=== PATIENT | female | born 1940 | race Caucasian/White ===

== ENCOUNTER 2023-11-30 06:39 | Inpatient (IN) | payer MEDICARE, SELFPAY ==
--- NOTE | 2023-10-28 13:34 | CM ---
Patient is scheduled for an elective R TKR on 11/30/23. Spoke with patient's daughter prior to surgery via telephone. Introduced role of Orthopedic Navigator. She reports that patient lives in a one floor (one step to enter) in law suite at daughter's
home. Daughter assists with showers but patient otherwise functions independently. She uses a rolling walker and also has a shower seat, grab bars in the shower and raised toilet seat with rails. She has an aide through [facility] [employer] two
days a week (four hours each time). The aide assists with meals and getting patient 'up and moving'. Daughter states that patient is very sedentary. She was receiving VN services through [facility] at the time of our conversation. PCP is "Harvey"Fernando.
Discussed orthopedic program and post surgical plans. Reviewed anticipated length of stay and that goal is for patient to return home at discharge. Also reviewed outpatient PT. Daughter is in agreement with tentative plan but states that patient
will need VN services. Daughter will be able to provide support when she is home.
Patient will complete online education.
Plan: Orthopedic Navigator will remain available to assist with the care of patient and will reassess discharge needs after surgery.
[2023-11-06 13:23] VITALS: BMI 24.2
[2023-11-06 14:30] LABS: Hematocrit 40.6 % (37.0-47.0); Hemoglobin 12.8 g/dL (12.0-16.0); Mean Corp Hgb Conc. 31.5 g/dL (33.0-37.0); Mean Corpuscular Hgb 29.1 pg (27.0-31.0); Mean Corpuscular Volume 92.3 fL (81.0-99.0); Mean Platelet Volume 9.9 fL (7.4-10.4); Platelet Count 245 10^3/uL (130-400); Red Cell Dist. Width 13.8 % (11.5-14.5); White Blood Cell Count 6.9 10^3/uL (4.8-10.8)
[2023-11-06 14:48] LABS: ALT (SGPT) 13 U/L (0-35); AST (SGOT) 23 U/L (14-36); Albumin 4.1 g/dl (3.5-5.0); Alkaline Phosphatase 59 U/L (38-126); Blood Urea Nitrogen 25 mg/dl (7-17); Calcium 9.8 mg/dl (8.4-10.2); Carbon Dioxide 30 mmol/L (22-30); Chloride 101 mmol/L (98-107); Estimated Creatinine Clearance 58 ml/min; Glucose 93 mg/dl (70-99); Potassium 4.3 mmol/L (3.5-5.1); Sodium 139 mmol/L (135-145); Total Bilirubin 0.7 mg/dl (0.2-1.3); Total Protein 6.5 g/dl (6.3-8.2); eGFR > 60.00
[2023-11-06 15:45] VITALS: BMI 24.2
[2023-11-07 08:44] LABS: Glycohemoglobin (HgbA1c) 5.5 % (4.0-5.6)
[2023-11-30] VITALS (9 sets, daily range): BP systolic 129–183; BP diastolic 61–80; BMI 24.2
[2023-11-30] MEDS: NORMOSOL-R 1000 IV ×2 (12:10→16:56)
[2023-11-30] MEDS: TYLENOL 650 MG PO (12:20)
[2023-11-30] MEDS: CELEBREX 200 MG PO (12:20)
--- NOTE | 2023-11-30 13:23 | SUR.OPER ---
patient has a pacemaker, s/p 3 cardiac ablations, 2 cardio versions
--- NOTE | 2023-11-30 14:59 | W.PN.UPDATE ---
Update Note
Progress Note Update
R knee OA s/p R TKA w/ Dr Leach 11/30/23
- s/p L CARLYN, 09/2018, at an outside facility
DVT prophylaxis - Xarelto at modified dosing, b/l venous foot pumps
- Will resume Xarelto 20 mg qPM on POD 14 if remaining hemodynamically stable
HTN - diet controlled - monitor BP
Permanent atrial fibrillation/atrial flutter, status post ablation x3 and cardioversion x2
Atrial tachycardia, status post ablation 03/2015
Complete AV heart block, status post pacemaker insertion 2015
- Monitor on tele
- Resume Xarelto as stated above
Right renal artery stenosis, status post stenting 2003 - no NSAIDs
GERD - add Pepcid HS
Balance difficulties and ambulatory dysfunction with history of falls - on fall precautions
Lumbar DDD/stenosis with radiculopathy - consider Gabapentin or Lyrica
Hypercholesterolemia
Mild coronary and aortic calcifications on chest CT 2014
Venous varicosities with insufficiency
Mild to moderate mitral regurgitation
Mild tricuspid regurgitation
Pancreatitis secondary to previous Lipitor 2010
Benign essential tremor of right hand
Childhood goiter
Overactive bladder
COVID 19, 02/2023, without residual deficits
Rhabdomyolysis 02/2023
Osteopenia
Remote history of tobacco abuse
--- NOTE | 2023-11-30 16:40 | PTCARENOTE ---
received report from pacu, pt admitted to room 2113. AAOx3. right knee aquacel CDI. right dp pulse palpable. sensation intact. Lung sounds clear on room air. active bowel sounds. denies nausea. see worklist for full nursing assessment and
interventions.
[2023-11-30] MEDS: LIDOCAINE 4% PATCH 2 PATCH TOPICAL (16:57)
[2023-11-30] MEDS: VITAMIN B-12 1000 MCG PO (16:57)
[2023-11-30] MEDS: XARELTO 10 MG PO (16:57)
[2023-11-30] MEDS: NORCO 5/325 1 TABLET PO ×2 (17:25→22:01)
[2023-11-30] MEDS: COLACE 100 MG PO (20:34)
[2023-11-30] MEDS: PEPCID 20 MG PO (20:34)
[2023-11-30] MEDS: SENOKOT 17.1999999999999993 MG PO (20:34)
[2023-11-30] MEDS: DECADRON 4 MG PO (20:34)
[2023-11-30] MEDS: BACTROBAN 2% OINTMENT 1 APPLIC NASAL (21:57)
[2023-12-01 03:20] VITALS: BP 170/69
[2023-12-01] MEDS: NORCO 7.5/325 1 TABLET PO (04:46)
[2023-12-01 05:06] VITALS: BP 150/66
[2023-12-01 05:56] VITALS: BMI 26.1
[2023-12-01 07:31] VITALS: BP 143/63
[2023-12-01] MEDS: LIDOCAINE 4% PATCH 2 PATCH TOPICAL (08:31)
[2023-12-01] MEDS: DECADRON 4 MG PO (08:35)
[2023-12-01] MEDS: COLACE 100 MG PO (08:35)
[2023-12-01] MEDS: TYLENOL 650 MG PO (08:35)
[2023-12-01] MEDS: BACTROBAN 2% OINTMENT 1 APPLIC NASAL (08:36)
[2023-12-01] MEDS: SENOKOT 17.1999999999999993 MG PO (08:36)
[2023-12-01] MEDS: VITAMIN B-12 1000 MCG PO (08:36)
--- NOTE | 2023-12-01 08:48 | CM ---
Addendum entered by Lillian Kauffman 12/01/23 10:18:
Call placed to daughter. Update provided. She states that she will be home with patient for two weeks. She has also increased the hours the caregiver comes to three days a week, five hours each time. She will be present for discharge instructions;
RN aware.
Addendum entered by Lillian Kauffman 12/01/23 10:10:
Spoke with Aura at [facility]. She requested a script for home PT and OT; script faxed to [facility].
Original Note:
Reviewed chart and held rounds with PT, OT and nursing. Patient admitted as planned for elective R TKR. Met with patient at bedside. Confirmed information previously obtained for assessment. Also discussed discharge plans. The plan is for patient to
return home at discharge. She will have support from her daughter and aide (who comes twice a week) when she goes home. Reviewed VN services including start of care (tentatively 12/01), services to be ordered (PT, OT) and frequency/duration of
services. Options list provided and PAC data reviewed. Patient selects [facility].
Patient has a rolling walker, cane and raised toilet seat with rails at home.
VN referral was completed and sent to [facility] through [employer] with request for start of care on 12/01. Spoke with Aura at [facility] who confirms that they can accept referral. yard demurrage clerk to fax discharge instructions to [facility] when complete.
Patient will use [email or web address] pharmacy for discharge prescriptions.
[2023-12-01 09:00] VITALS: BP 133/58; PULSE 88
--- NOTE | 2023-12-01 10:05 | W.PN.ORTHO ---
Today's Communication / Plan
-
D/c today since clinically stable, did well w/ both PT and OT.
Assessment
.
Distal Motor Intact: Yes
Dressing:
Clean, dry and intact.
Assessment:
R knee OA s/p R TKA w/ Dr Leach 11/30/23
- s/p L CARLYN, 09/2018, at an outside facility
DVT prophylaxis - Xarelto at modified dosing, b/l venous foot pumps
- Will resume Xarelto 20 mg qPM on POD 14 since hemodynamically stable
HTN - diet controlled - BPs stable by POD 1
Permanent atrial fibrillation/atrial flutter, status post ablation x3 and cardioversion x2
Atrial tachycardia, status post ablation 03/2015
Complete AV heart block, status post pacemaker insertion 2015
- Rhythm stable on tele
- Resume Xarelto as stated above
Right renal artery stenosis, status post stenting 2003 - no NSAIDs
GERD - added Pepcid HS
Balance difficulties and ambulatory dysfunction with history of falls - on fall precautions
Lumbar DDD/stenosis with radiculopathy - consider Gabapentin or Lyrica
Hypercholesterolemia
Mild coronary and aortic calcifications on chest CT 2014
Venous varicosities with insufficiency
Mild to moderate mitral regurgitation
Mild tricuspid regurgitation
Pancreatitis secondary to previous Lipitor 2010
Benign essential tremor of right hand
Childhood goiter
Overactive bladder
COVID 19, 02/2023, without residual deficits
Rhabdomyolysis 02/2023
Osteopenia
Remote history of tobacco abuse
Plan
.
Surgery / Date: R TKA w/ Dr Leach 11/30/23
DVT Prophylaxis: Other (Xarelto at modified dosing )
Activity:
Out of bed.
PT/OT
Discharge Plan: Other (Home w/ home PT and OT )
Subjective
.
.:
Patient resting comfortably in her chair this AM.
R knee pain well controlled w/ current pain meds.
Denies any new significant complaints.
Eager for potential d/c today.
Vital Signs and Labs
.
Vital Signs and Labs:
Lab Results
11/06/23 13:30
11/06/23 13:30
Temp Pulse Resp BP Pulse Ox
98.5 F 81 16 143/63 92
12/01/23 07:31 12/01/23 07:31 12/01/23 07:31 12/01/23 07:31 12/01/23 07:31
Non-invasive Hgb result: 12.8
Physical Exam
-
HEENT: No pallor, cyanosis, or jaundice. Throat clear.
NECK: Supple. No JVD.
RESPIRATORY: Lungs clear to auscultation.
CVS: S1, S2 normal. RRR.�+ PPM.
ABDOMEN: Soft, non-tender. No distension.
EXTREMITIES: Chronic R ankle swelling. Mild post-surgical swelling of R knee. Strength equal, no calf pain with palpation/dorsiflexion. Calves soft.
PARTY COORDINATOR: AOx3. No focal deficits. truck hopper grossly intact
--- NOTE | 2023-12-01 10:14 | W.DS.TRANS ---
DC Summary - Glass Blower
-
Discharge Instructions:
Sleep Apnea Risk Low
Discharge Diagnosis/Procedures R knee OA s/p R TKA w/ Dr Leach 11/30/23
Diet Regular
Activity As tolerated,With Walker
Driving Restrictions Not until seen by your Dr
Bathing Restrictions OK to Shower
Other Services PT,OT
Wound Care Dressing to be removed 1 week post-surgery.
[place] to be removed in 2 weeks at follow-up
appointment with surgeon's office.
Instructions:
Stand-Alone Forms: Total Hip/Knee Replacement D/C
Changes to Home Medications: Yes
Discharge Medications:
DC Medications w/original date entered in [employer]
cyanocobalamin (vitamin B-12) 1,000 mcg tablet 1,000 mcg PO DAILY Supplement 03/11/23
rivaroxaban 20 mg tablet (Xarelto) 20 mg PO DAILY Blood Clot Prevention/Tx 03/11/23
calcium 600 mg capsule 600 mg PO QPM Supplement 11/03/23
mupirocin 2 % topical ointment 1 applic intranasal BID #1 tube 11/06/23
acetaminophen 325 mg tablet 650 mg PO Q4H PRN mild pain #60 tabs 12/01/23
dexamethasone 4 mg tablet 4 mg PO BID #5 tabs 12/01/23
docusate sodium 100 mg capsule 100 mg PO BID #30 caps 12/01/23
famotidine 20 mg tablet 20 mg PO HS #30 tabs 12/01/23
hydrocodone 5 mg-acetaminophen 325 mg tablet 1 - 2 tab PO Q6H PRN moderate-severe pain #30 tabs 12/01/23
lidocaine 4 % topical patch 2 patch topical DAILY #30 ea 12/01/23
ondansetron HCl 4 mg tablet 4 mg PO Q6H PRN nausea and vomiting #30 tabs 12/01/23
rivaroxaban 10 mg tablet (Xarelto) 10 mg PO QPM #13 tabs 12/01/23
sennosides 8.6 mg tablet (Senna Lax) 17.2 mg PO BID #30 tabs 12/01/23
Home Medication Changes
acetaminophen 325 mg tablet 650 mg PO Q4H PRN mild pain #60 tabs 12/01/23
dexamethasone 4 mg tablet 4 mg PO BID #5 tabs 12/01/23
docusate sodium 100 mg capsule 100 mg PO BID #30 caps 12/01/23
famotidine 20 mg tablet 20 mg PO HS #30 tabs 12/01/23
hydrocodone 5 mg-acetaminophen 325 mg tablet 1 - 2 tab PO Q6H PRN moderate-severe pain #30 tabs 12/01/23
lidocaine 4 % topical patch 2 patch topical DAILY #30 ea 12/01/23
ondansetron HCl 4 mg tablet 4 mg PO Q6H PRN nausea and vomiting #30 tabs 12/01/23
rivaroxaban 10 mg tablet (Xarelto) 10 mg PO QPM #13 tabs 12/01/23
sennosides 8.6 mg tablet (Senna Lax) 17.2 mg PO BID #30 tabs 12/01/23
Pending Results: No
[2023-12-01 10:42] VITALS: BP 136/67
== END 2023-12-01 12:14 | disposition home health service (06) | DRG 470 ==
LOC: 2 SOUTH 06:39
PROVIDERS: ADMITTING PHYSICIAN Specialist; FAMILY PHYSICIAN Internal Medicine Geriatric Medicine
PROC: 0SRC0J9 Replacement of Right Knee Joint with Synthetic Substitute, Cemented, Open Approach (ICD-10-PCS; 2023-11-30)
DX: M17.11 Unilateral primary osteoarthritis, right knee (principal); I48.21 Permanent atrial fibrillation; I10 Essential (primary) hypertension; E78.00 Pure hypercholesterolemia, unspecified; I08.1 Rheumatic disorders of both mitral and tricuspid valves; Z79.01 Long term (current) use of anticoagulants; Z95.0 Presence of cardiac pacemaker; Z87.891 Personal history of nicotine dependence; Z91.81 History of falling
CPT/HCPCS: 36415; 73560; 80053; 83036; 85027; 87070; 97110; 97116; 97162; 97166; 97530; 97535; C1713; C1776

== ENCOUNTER 2024-02-26 15:01 | Outpatient (RCR) | payer MEDICARE, SELFPAY | END 2024-02-26 23:59 | disposition home or self-care (01) | LOC: RPT 15:01 | PROVIDERS: ATTENDING PHYSICIAN Specialist; FAMILY PHYSICIAN Internal Medicine Geriatric Medicine | DX: Z47.1 Aftercare following joint replacement surgery (principal); Z96.651 Presence of right artificial knee joint; Z73.6 Limitation of activities due to disability; R26.89 Other abnormalities of gait and mobility | CPT/HCPCS: 97010; 97110; 97140; 97162 ==

== ENCOUNTER 2024-03-22 13:12 | Outpatient (RCR) | payer MEDICARE, SELFPAY | END 2024-03-23 07:34 | disposition home or self-care (01) | LOC: RPT 13:12 | PROVIDERS: ATTENDING PHYSICIAN Specialist; FAMILY PHYSICIAN Internal Medicine Geriatric Medicine | DX: R26.89 Other abnormalities of gait and mobility (principal); Z73.6 Limitation of activities due to disability; Z96.651 Presence of right artificial knee joint | CPT/HCPCS: 97110; 97140 ==

== ENCOUNTER 2024-04-22 14:14 | Inpatient (IN) | payer MEDICARE, SELFPAY ==
[2024-04-22] VITALS (8 sets, daily range): BP systolic 122–173; BP diastolic 46–72; BMI 27.1; BMI 23.9
--- NOTE | 2024-04-22 09:28 | ED.GENMED ---
History of Present Illness
<Amandeep Stewart PA-C - Last Filed: 04/22/24 13:38>
General
Chief Complaint: Fall
Source: patient and family
Time Seen by Provider: 04/22/24 09:16
History of Present Illness
History of Present Illness:
83-year-old female with past medical history of atrial fibrillation, hypertension, hyperlipidemia presenting to the emergency department for evaluation after she fell at approximately 3 AM last night while attempting to get up out of bed and go to
the bath, was attempting to grab onto her walker but was unable to get a hold of this and fell back into the wooden frame of her bed. Patient is currently staying with her oldest daughter for the week as her other daughter who she normally stays
with is currently away on vacation. Patient takes Xarelto due to her history of atrial fibrillation but does not believe she struck her head last night. Patient states her main concern is mid to lower back pain and family notes a large area of
ecchymosis since the fall. Family also notes a very small skin tear to the right forearm but no other injuries sustained. Patient denies any chest pain, shortness of breath, abdominal pain, nausea, vomiting.
Past History
<Amandeep Stewart PA-C - Last Filed: 04/22/24 13:38>
Past History
ED Past Medical History: Arrthythmia (Atrial tachycardia, atrial fibrillation), GERD, HTN and Hypercholesterolemia
ED Past Surgical History: Cardiac (Cardiac ablations/cardioversions), Gynecological (D&C) and Other (Renal artery stenting)
Social History
Tobacco: Non-smoker
Alcohol: None
Drug: None
Personal:
Living: with family
Employment: Retired
Family History
Family History: Negative Early CAD
Review of Systems
<Amandeep Stewart PA-C - Last Filed: 04/22/24 13:38>
Review of Systems
All Other Systems: ROS reviewed and negative except as documented in HPI and ROS
Phy Exam
<Amandeep Stewart PA-C - Last Filed: 04/22/24 13:38>
Physical Exam
Physical Exam:
GENERAL: Alert , in no apparent distress
Head: Normocephalic atraumatic
EYE: Clear conjunctiva
NECK: Supple, no midline tenderness
ENT: o/p clr, mmm.
CARDIAC: Regular rate and rhythm .
LUNGS: Clear breath sounds bilaterally, no acute respiratory distress, no wheezes/rales/rhonchi, no chest wall tenderness
ABDOMEN: Soft, without focal tenderness, no r/g, no cvat
Back: Large area of ecchymosis from the mid thoracic region down to the top of the lumbar region, midline, small abrasion centrally, diffusely tender to palpation within the ecchymosis
NEUROLOGICAL: Alert and oriented
SKIN: Warm and dry, skin intact.
MUSCULOSKELETAL: Nonpitting bilateral lower extremity edema to the mid lower legs, well perfused.
PSYCH: Normal and appropriate interaction.
Scores
<Amandeep Stewart PA-C - Last Filed: 04/22/24 13:38>
Heart Failure Risk
Heart Failure Risk Score: Not Applicable
Heart Score for Chest Pain Patients
STEMI patient?: Not applicable
Withdrawal Assessment of Alcohol
Withdrawal Assessment Completed?: Not applicable
Course
<Amandeep Stewart PA-C - Last Filed: 04/22/24 13:38>
Orders/Labs/Results
Orders:
Orders
04/22/24 09:23
CT Chest/abd/pel W Iv Cont Urgent
Reason For Exam: fall, on xarelto, large ecchymosis mid back
CT Head W/o Iv Contrast Urgent
Comment:
Reason For Exam: fall, on xarelto
04/22/24 09:33
Acetaminophen [Tylenol] 650 mg PO NOW STA
04/22/24 09:42
Basic Metabolic Panel Urgent
Complete Blood Count/With Diff Urgent
04/22/24 13:01
Type+Screen Urgent
04/22/24 13:06
Prothrombin Complex(Pcc),Human [Kcentra] 1,618 unit Empty Viaflex Container 100 ml [Viaflex Empty Container] 60 ml IV NOW
Abnormal Lab Results
04/22/24
09:42
RBC 3.82 L 10^6/uL
(4.20-5.40)
Hgb 10.9 L g/dL
(12.0-16.0)
Hct 33.6 L %
(37.0-47.0)
MCHC 32.4 L g/dL
(33.0-37.0)
RDW 14.8 H %
(11.5-14.5)
Absolute Neuts (auto) 6.8 H 10^3/uL
(1.4-6.5)
Absolute Lymphs (auto) 0.9 L 10^3/uL
(1.2-3.4)
Absolute Monos (auto) 1.0 H 10^3/uL
(0.1-0.6)
Neutrophils % 77.8 H %
(42.2-75.2)
Lymphocytes % 9.9 L %
(20.5-51.1)
Monocytes % 11.1 H %
(1.7-9.3)
BUN 26 H mg/dl
(7-17)
Glucose 118 H mg/dl
(70-99)
04/22/24 09:42
04/22/24 09:42
Vital Signs
Initial and Last Documented VS:
Initial Vital Signs
Temp Pulse Resp BP Pulse Ox
99.0 F 81 16 160/72 95
04/22/24 09:04 04/22/24 09:04 04/22/24 09:04 04/22/24 09:04 04/22/24 09:04
Last Documented Vital Signs
Temp Pulse Resp BP Pulse Ox
99.0 F 76 16 154/58 96
04/22/24 09:04 04/22/24 11:10 04/22/24 11:10 04/22/24 11:10 04/22/24 11:10
<Hyun Boston, DO - Last Filed: 04/22/24 13:31>
Orders/Labs/Results
Orders:
Orders
04/22/24 09:23
CT Chest/abd/pel W Iv Cont Urgent
Reason For Exam: fall, on xarelto, large ecchymosis mid back
CT Head W/o Iv Contrast Urgent
Comment:
Reason For Exam: fall, on xarelto
04/22/24 09:33
Acetaminophen [Tylenol] 650 mg PO NOW STA
04/22/24 09:42
Basic Metabolic Panel Urgent
Complete Blood Count/With Diff Urgent
04/22/24 13:01
Type+Screen Urgent
04/22/24 13:06
Prothrombin Complex(Pcc),Human [Kcentra] 1,618 unit Empty Viaflex Container 100 ml [Viaflex Empty Container] 60 ml IV NOW
Abnormal Lab Results
04/22/24
09:42
RBC 3.82 L 10^6/uL
(4.20-5.40)
Hgb 10.9 L g/dL
(12.0-16.0)
Hct 33.6 L %
(37.0-47.0)
MCHC 32.4 L g/dL
(33.0-37.0)
RDW 14.8 H %
(11.5-14.5)
Absolute Neuts (auto) 6.8 H 10^3/uL
(1.4-6.5)
Absolute Lymphs (auto) 0.9 L 10^3/uL
(1.2-3.4)
Absolute Monos (auto) 1.0 H 10^3/uL
(0.1-0.6)
Neutrophils % 77.8 H %
(42.2-75.2)
Lymphocytes % 9.9 L %
(20.5-51.1)
Monocytes % 11.1 H %
(1.7-9.3)
BUN 26 H mg/dl
(7-17)
Glucose 118 H mg/dl
(70-99)
04/22/24 09:42
04/22/24 09:42
Vital Signs
Initial and Last Documented VS:
Initial Vital Signs
Temp Pulse Resp BP Pulse Ox
99.0 F 81 16 160/72 95
04/22/24 09:04 04/22/24 09:04 04/22/24 09:04 04/22/24 09:04 04/22/24 09:04
Last Documented Vital Signs
Temp Pulse Resp BP Pulse Ox
99.0 F 76 16 154/58 96
04/22/24 09:04 04/22/24 11:10 04/22/24 11:10 04/22/24 11:10 04/22/24 11:10
<Amandeep Stewart PA-C - Last Filed: 04/22/24 13:38>
MDM/Problems Addressed
Differential Diagnosis Includes:
Thoracic or lumbar fracture, contusion, retroperitoneal bleeding, intracranial bleeding, mechanical trip and fall, no concern for sink
MDM/Problems Addressed:
83-year-old female presenting to the emergency department for evaluation after an accidental fall last night while attempting to get out of bed to go to the bathroom. Patient with significant back pain since the fall, physical exam revealing large
area of ecchymosis within the thoracic and lumbar region. She is hemodynamically stable and in no acute distress. Did not take anything for pain prior to arrival. Patient requesting Tylenol. CT of the head ordered given patient is anticoagulated
as well as the chest abdomen pelvis to evaluate for any further injury.
Chronic conditions affecting care: Arrhythmia
<Amandeep Stewart PA-C - Last Filed: 04/22/24 13:38>
*Radiology
Radiology exam reviewed: radiology read reviewed
*Pulse Oximetry
Patient hypoxic: no
*Pottery Striper Interpretation
Rate: normal
Rhythm: sinus
*Critical Care Note
Total Time (30-74mins, 75-104mins- exclusive of procedures): 35
comment:
Critical care statement: A total of 35 minutes of critical care time was provided for this patient. This includes management of unstable vital signs, evaluation of the patient at bedside, reviewing the patient's pertinent medical records, discussion
with consultants, review of old EKGs and review of pertinent medical records. This time with separate from time utilized to perform the aforementioned documented procedures
Data Reviewed
Review of Other/Old Records Reveals: Labs
<Amandeep Stewart PA-C - Last Filed: 04/22/24 13:38>
Patient Management
Discussion with other providers: Hospitalist, Labor Conciliator and Radiologist
Escalation/DeEscalation of care consider admission/obs:
Informed by radiologist that patient has an approximate 9-1/2 x 6 and half centimeter soft tissue hematoma within the soft tissues of the posterior left thoracolumbar region and there does appear to be active extravasation. Patient's hemoglobin is
10.9 and baseline appears to be around 12-13. I spoke to our interventional radiology department who states at this time patient can be managed with Kcentra and direct pressure and this should be sufficient to control the bleeding. I notified
hospitalist team who accepts for continued evaluation and treatment.
ED Attending Note
<Amandeep Stewart PA-C - Last Filed: 04/22/24 13:38>
-
Portions of this chart may have been created with voice recognition software.� Occasional wrong word or��sound alike� substitutions may have occurred due to the inherent limitations of voice recognition software.
<Hyun Boston DO - Last Filed: 04/22/24 13:31>
ED Attending Note
Patient seen and examined by attending physician: Yes
I performed the substantive portion of visit, reviewed & personally made and approve the management plan that is documented in note by myself or KARTIK.: Yes
I performed a history and physical exam of patient and discussed management with resident, I reviewed resident's note and agree with documented findings and plan of care.: Yes
ED Attending Note:
Patient seen and evaluated at bedside, 83-year-old female anticoagulated on Xarelto presenting after a fall. Patient fell getting out of bed earlier this morning, injuring her left thoracic back region, with subsequent large hematoma. Patient
hemodynamically stable in the emergency department.
On examination, noted to have large hematoma to the left thoracic back with tenderness on palpation. No additional signs of trauma. CT of the chest/abdomen shows concern for large hematoma with active extravasation. KARTIK discussed case with
interventional radiology, advised against embolization. Plan for Kcentra and continued hemodynamic monitoring with admission. Patient and daughter updated at bedside.
Discharge Plan
Departure
Patient Disposition: Admit
Date of Disposition: 04/22/24
Time of Disposition: 13:29
Presentation/result/management discussed w/ accepting MD/DO: Hospitalist
Discharge Problem:
Traumatic hematoma of lower back, Anemia, Accidental fall
Prescriptions:
No Action
acetaminophen [Tylenol] 325 mg Tablet
650 mg PO QIDPRN PRN (Reason: mild leg pains)
cyanocobalamin (vitamin B-12) 1,000 mcg Tablet
1,000 mcg PO QPM
Theragen Tablet
1 tab PO DAILY
calcium carbonate [Calcium 500] 500 mg calcium (1,250 mg) Tablet
500 mg PO DAILY
Xarelto 20 mg Tablet
20 mg PO QPM
Referrals:
Steven King MD [Family Provider] -
Interventions
Interventions:
*Risk Screen - Suicide Last Done: 04/22/24 09:46
*General Assessment Last Done: 04/22/24 09:46
*Neglect/Abuse Screening Last Done: 04/22/24 09:46
*ED COVID-19 Vaccine History Last Done: 04/22/24 09:04
ED-Musculoskeletal Assessment Last Done: 04/22/24 09:46
ED- Neurological Assessment Last Done: 04/22/24 09:46
ED-Skin Assessment Last Done: 04/22/24 09:46
Discharge Date and Time
Print Language: [place]
[2024-04-22] MEDS: TYLENOL 650 MG PO (09:37)
[2024-04-22 09:51] LABS: % Basophils 0.2 % (0-2); % Eosinophils 0.7 % (0-6); % Immature Granulocytes 0.3 % (0-0.5); % Lymphocytes 9.9 % (20.5-51.1); % Monocytes 11.1 % (1.7-9.3); % Neutrophils 77.8 % (42.2-75.2); Absolute Eosinophils 0.1 10^3/uL (0-0.7); Absolute Lymphocytes 0.9 10^3/uL (1.2-3.4); Absolute Neutrophils 6.8 10^3/uL (1.4-6.5); Hematocrit 33.6 % (37.0-47.0); Hemoglobin 10.9 g/dL (12.0-16.0); Mean Corp Hgb Conc. 32.4 g/dL (33.0-37.0); Mean Corpuscular Hgb 28.5 pg (27.0-31.0); Mean Platelet Volume 9.8 fL (7.4-10.4); Nucleated Red Blood Cells % 0 %; Platelet Count 187 10^3/uL (130-400); Red Blood Cell Count 3.82 10^6/uL (4.20-5.40); Red Cell Dist. Width 14.8 % (11.5-14.5); White Blood Cell Count 8.7 10^3/uL (4.8-10.8)
[2024-04-22 10:06] LABS: Blood Urea Nitrogen 26 mg/dl (7-17); Calcium 9.3 mg/dl (8.4-10.2); Carbon Dioxide 29 mmol/L (22-30); Chloride 105 mmol/L (98-107); Estimated Creatinine Clearance 63 ml/min; Glucose 118 mg/dl (70-99); Sodium 138 mmol/L (135-145); eGFR > 60.00
[2024-04-22] MEDS: KCENTRA 60 UNIT IV (13:33)
--- NOTE | 2024-04-22 13:33 | HPS.HSE ---
Addendum entered and electronically signed by Rylan Coello MD 04/22/24 15:22:
Patient seen and examined
Discussed with physician assistant housekeeping manager
Agree with assessment and plan:
Impression:
Mechanical fall with traumatic back muscular hematoma.
Acute anemia secondary to blood loss into hematoma and anticoagulation with Xarelto
Conditions prior to admission:
Permanent atrial fibrillation/atrial flutter, atrial tachycardia, status post atrioventricular ablation/block, status post pacemaker insertion 2015.
Mild MR
Anticoagulation with Xarelto.
Essential hypertension.
Chronic ambulatory dysfunction walker dependent.
Osteoarthritis status post total knee arthroplasty 12/19
Plan:
Mechanical fall with back muscular hematoma and acute blood loss anemia
CT findings consistent with 9 x 4 x 6 cm soft tissue hematoma within the posterior left soft tissue of the lower thoracic/upper lumbar level which demonstrates increased layering hyperdense material on delayed images consistent with active
extravasation.
Noted drop in hemoglobin from 12 to 10 g.
Hemodynamically stable.
Status post Kcentra in ED.
Hold Xarelto.
Follow serial hemoglobin.
Current assessment including interventional radiology suggestion with no indication for surgical intervention.
If expanding hematoma or significant drop in hemoglobin, consider vascular surgery consult.
Patient typed and crossed
Consent for blood transfusion
Permanent atrial fibrillation
Status post ablation
PPM in place.
ECG ventricular paced
No prior history of CVA
Echocardiogram with preserved biventricular function mild to moderate MR.
Monitor closely open Xarelto
Urinary frequency.
Afebrile
Will check UA and reflex to cultures
Original Note:
Family Physician
-
Family Physician: Steven King
Chief Complaint
-
Fall
History of Present Illness
Patient is an 83 y/o female with a PMH of AFib on Xarelto who reports to the ED after a mechanical fall. Patient states is staying with one her daughter's while the daughter she lives with is on vacation so she's not used to her surroundings. She
woke up at 3am to go to the bathroom and states she slipped and hit her back on the wooden bed frame. She denies hitting her head. Patient uses a walker at baseline. She admits to numbness and tingling in her feet and peripheral edema but states
that's chronic. She states she last fell in February 2023 when she was admitted for COVID. She reports mid/lower left-sided back pain. She denies any chest pain, shortness of breath, palpitations, fever, chills, nausea, vomiting, abdominal pain, changes
in bowel movements, or dysuria.
Medical History
Past Medical History
Past Medical History: Reports Other
Additional Past Medical History:
Paroxysmal Atrial Fibrillation s/p Ablation and Pacemaker
Essential Hypertension
Hyperlipidemia
GERD
Osteoarthritis
Past Surgical History: Reports Other
Additional Past Surgical History:
Renal Artery Stent
Left Hip Replacement
Right Total Knee Replacement
Pacemaker
Social History
Tobacco: Non-smoker
Alcohol: None
Living: With Family
Family History
Family History: Not pertinent
Allergies / Home Medications
Allergies reflects when Allergies were last updated in [email or web address].
Home Medications with original date entered in [email or web address]
Allergy/Medication List:
Allergies
Allergy/AdvReac Type Severity Reaction Status Date / Time
Penicillins Allergy Unknown Rash Verified 04/22/24 09:09
Wdjqodr-UFW-IoK Reductase Allergy Unknown Pancreatiti Verified 04/22/24 09:09
Inhibitor s
[Unxyhns-Ogn-Bqq Reductase
Inhibitor]
Home Medications
acetaminophen 325 mg tablet (Tylenol) 650 mg PO QIDPRN PRN mild leg pains 04/22/24
calcium carbonate 500 mg PO DAILY 04/22/24
cyanocobalamin (vitamin B-12) 1,000 mcg tablet 1,000 mcg PO QPM 04/22/24
rivaroxaban 20 mg tablet (Xarelto) 20 mg PO QPM 04/22/24
therapeutic multivitamin 1 tab PO DAILY 04/22/24
Review of Systems
-
A 12 point ROS was completed and negative except as noted: Yes
Constitutional: Denies Fever or Chills
Respiratory: Denies Cough or Trouble Breathing
Cardiac: Denies Chest Pain or Palpitations
Abdomen/GI: Denies Abdominal Pain, Nausea, Vomiting, Diarrhea or Constipated
Musculoskeletal: Reports See HPI
Physical Exam
Vital Signs
Vital Signs
Temp Pulse Resp BP Pulse Ox
99.0 F 76 16 154/58 96
04/22/24 09:04 04/22/24 11:10 04/22/24 11:10 04/22/24 11:10 04/22/24 11:10
Physical Exam
General: Comfortable and Conversant
HEENT: Anicteric and Moist mucous membranes
Respiratory: Clear and Non Labored Respirations
Cardiac: S1/S2 and Regular Rhythm; No Murmur
GI: Soft and Non Tender
Rectal: Deferred by Provider
Musculoskeletal: No Clubbing, No Cyanosis and Other (Trace bilateral lower extremity edema)
Skin: Warm, Dry and Other (Large area of ecchymosis across mid/low back)
Neuro: Awake, Alert and Nonfocal/grossly intact
Psych: Calm
Laboratory Results
-
04/22/24 09:42
04/22/24 09:42
Chest/Abd/Pelvis CT:
There is a 9.6 x 4.0 x 6.5 cm soft tissue hematoma within the posterior left soft tissues of the lower thoracic/upper lumbar level which demonstrates increased layering hyperdense material on delayed images consistent with active extravasation. The
exact vessel of origin is not definitely visualized. There is significant surrounding soft tissue stranding and edema extending into the upper left gluteal soft tissues. There is no definite associated fracture.
Data Reviewed
-
CT Scan: Report Reviewed by me
Lab Data: Labs Reviewed by me
Old Records: Reviewed
Impression/Plan
-
Traumatic Left Thoracic/Lumbar Hematoma
-Patient received K-Centra in ED
-Not amendable to embolization per IR
-Continue to monitor
Acute Blood Loss Anemia
-Continue to trend serial Hgb
Paroxysmal Atrial Fibrillation s/p Ablation and Pacemaker
-Xarelto on hold
-Monitor on Telemetry
DVT proph: SCDs
Code Status: DNR
[2024-04-22 17:57] LABS: Hematocrit 29.7 % (37.0-47.0); Hemoglobin 9.9 g/dL (12.0-16.0)
[2024-04-23] VITALS (7 sets, daily range): BP systolic 129–148; BP diastolic 48–55; PULSE 76; O2SAT 95
[2024-04-23] MEDS: TYLENOL 650 MG PO ×3 (03:16→22:03)
--- NOTE | 2024-04-23 08:30 | W.PN.HOSP.TC ---
Today's Communication/Plan
-
Await CBC for today
c/w Tylenol, add Tramadol for severe pain
Assessment / Plan
Assessment / Plan
Physical Exam
General: Comfortable and Conversant
HEENT: Anicteric and Moist mucous membranes
Respiratory: Clear and Non Labored Respirations
Cardiac: S1/S2 and Regular Rhythm; No Murmur
GI: Soft and Non Tender
Rectal: No rectal bleeding.
Musculoskeletal: No Clubbing, No Cyanosis and Other (Trace bilateral lower extremity edema)
Skin: Warm, Dry and Other (Large area of ecchymosis across mid/low back)
Neuro: Awake, Alert and Nonfocal/grossly intact
Psych: Calm, no agitation.
# Traumatic Left Thoracic/Lumbar Hematoma
- Back pain, use Tylenol , add Tramadol for severe pain
-Patient received K-Centra in ED
-Not amendable to embolization per IR
-Continue to monitor
# Acute blood loss anemia exacerbated by Xarelto
-Continue to trend serial Hgb. Transfuse if HGB less than 7
#Mild coronary and aortic calcifications on chest CT 2014.
- Permanent atrial fibrillation/atrial flutter, status post ablation x3
and cardioversion x2; pharmacological therapy with Xarelto.
- Atrial tachycardia, status post ablation 03/2015.
-Complete AV heart block, status post pacemaker insertion 2015.
# Essential hypertension.
Chronic ambulatory dysfunction walker dependent.
DVT proph: SCDs
Code Status: DNR
Total time spent to see the patient, examine the patient on the floor, review data and lab results, discuss treatment plan with patient, nursing staff around 55 minutes
Anticipated Discharge: 24 - 48 hours
Subjective/Interval History
-
Date of Service: April 23, 2024
No worsening pain
No nausea
Objective Data
-
Labs:
Laboratory Results
04/23/24
07:28
WBC Pending
Hgb Pending
Hct Pending
Plt Count Pending
Vital Signs:
Vital Signs
Temp Pulse Resp BP Pulse Ox
98.3 F 78 16 136/52 95
04/23/24 03:10 04/23/24 03:10 04/23/24 03:10 04/23/24 03:10 04/23/24 03:10
I&O
04/22/24 04/23/24 04/24/24
06:59 06:59 06:59
Intake Total 100 / 100
Output Total 300 / 300
Balance -200 / -200
[2024-04-23 09:00] LABS: Hematocrit 27.6 % (37.0-47.0); Mean Corp Hgb Conc. 32.6 g/dL (33.0-37.0); Mean Corpuscular Hgb 29.4 pg (27.0-31.0); Mean Corpuscular Volume 90.2 fL (81.0-99.0); Mean Platelet Volume 10.2 fL (7.4-10.4); Platelet Count 175 10^3/uL (130-400); Red Blood Cell Count 3.06 10^6/uL (4.20-5.40); Red Cell Dist. Width 14.7 % (11.5-14.5)
--- NOTE | 2024-04-23 12:41 | CM ---
Addendum entered by Angelica Martínez 04/23/24 13:38:
CM spoke with patients daughter again about PT recommendations, daughter agreeable to SNF, will send referrals in [facility].
Original Note:
Patient seen with daughter, initial assessment completed. Patient resides in in law suite, one floor. Patient uses a RW at home, has a home health aid three days a week for 4-5 hours while daughter works. Patient has had [facility] in past, [place] [facility]
during Covid, reports she had a terrible experience and would like to return home with services if possible. Patient confirmed PCP Dr. King, [facility], confirmed prescription coverage. Patient denies any food, housing/utility,
transportation insecurities at home. CM discussed PT/OT recommendations of SNF, patients daughter would like to bring patient home with home PT and home health aide services, if possible. CM will continue to follow for all discharge planning needs.
Plan; home with home PT and [facility] [facility] vs SNF, family undecided at this time.
[2024-04-24 03:00] VITALS: BP 129/47
[2024-04-24 07:26] LABS: Hematocrit 26.3 % (37.0-47.0); Hemoglobin 8.7 g/dL (12.0-16.0); Mean Corp Hgb Conc. 33.1 g/dL (33.0-37.0); Mean Corpuscular Hgb 29.6 pg (27.0-31.0); Mean Corpuscular Volume 89.5 fL (81.0-99.0); Mean Platelet Volume 10.3 fL (7.4-10.4); Platelet Count 174 10^3/uL (130-400); Red Blood Cell Count 2.94 10^6/uL (4.20-5.40); Red Cell Dist. Width 14.8 % (11.5-14.5); White Blood Cell Count 5.1 10^3/uL (4.8-10.8)
[2024-04-24 07:30] VITALS: BP 146/58
[2024-04-24 08:03] LABS: Blood Urea Nitrogen 22 mg/dl (7-17); Calcium 8.7 mg/dl (8.4-10.2); Carbon Dioxide 27 mmol/L (22-30); Chloride 105 mmol/L (98-107); Estimated Creatinine Clearance 65 ml/min; Glucose 96 mg/dl (70-99); Sodium 135 mmol/L (135-145); eGFR > 60.00
--- NOTE | 2024-04-24 08:31 | W.PN.HOSP.TC ---
Today's Communication/Plan
-
dc
Assessment / Plan
Assessment / Plan
Physical Exam
General: Comfortable and Conversant
HEENT: Anicteric and Moist mucous membranes
Respiratory: Clear and Non Labored Respirations
Cardiac: S1/S2 and Regular Rhythm; No Murmur
GI: Soft and Non Tender
Rectal: No rectal bleeding.
Musculoskeletal: No Clubbing, No Cyanosis and Other (Trace bilateral lower extremity edema)
Skin: Warm, Dry and Other (Large area of ecchymosis across mid/low back- not spreading)
Neuro: Awake, Alert and Nonfocal/grossly intact
Psych: Calm, no agitation.
# Traumatic Left Thoracic/Lumbar Hematoma
- Back pain, use Tylenol , added Tramadol for severe pain
-Patient received K-Centra in ED
-Not amendable to embolization per IR
-Continue to monitor
# Acute blood loss anemia exacerbated by Xarelto
-Continue to trend serial Hgb. Transfuse if HGB less than 7
Will start her on oral iron
#Mild coronary and aortic calcifications on chest CT 2014.
- Permanent atrial fibrillation/atrial flutter, status post ablation x3
and cardioversion x2; pharmacological therapy with Xarelto.
- Atrial tachycardia, status post ablation 03/2015.
-Complete AV heart block, status post pacemaker insertion 2015.
# Essential hypertension.
Chronic ambulatory dysfunction walker dependent.
DVT proph: SCDs
Code Status: DNR
Total time spent to see the patient, examine the patient on the floor, review data and lab results, discuss treatment plan with patient, daughter, nursing staff around 55 minutes
Anticipated Discharge: Today
Subjective/Interval History
-
Date of Service: April 24, 2024
No significant pain in her back
Objective Data
-
Labs:
Laboratory Results
04/24/24
06:51
WBC 5.1
Hgb 8.7 L
Hct 26.3 L
Plt Count 174
Sodium 135
Potassium 4.0
Chloride 105
Carbon Dioxide 27
BUN 22 H
Creatinine 0.5 L
Glucose 96
Calcium 8.7
Vital Signs:
Vital Signs
Temp Pulse Resp BP Pulse Ox
98.6 F 79 18 146/58 95
04/24/24 07:30 04/24/24 07:30 04/24/24 07:30 04/24/24 07:30 04/24/24 07:30
I&O
04/23/24 04/24/24 04/25/24
06:59 06:59 06:59
Intake Total 100 / 100 240 / 240
Output Total 300 / 300 450 / 450
Balance -200 / -200 -210 / -210
--- NOTE | 2024-04-24 10:48 | CM ---
CM reviewed chart. Referrals sent for short term rehab, awaiting response from facilities. CM will continue to follow for all discharge planning needs.
Plan; SNF pending accepting facility, will need ambulance transport, forms placed on chart.
[2024-04-24 11:21] VITALS: BP 138/55
[2024-04-24 15:27] VITALS: BP 129/56
[2024-04-24] MEDS: FERRLECIT 110 MG IV (15:31)
[2024-04-24 19:41] VITALS: BP 132/48
[2024-04-24 23:10] VITALS: BP 143/52
[2024-04-25 03:03] VITALS: BP 149/62
[2024-04-25 07:40] VITALS: BP 146/56
[2024-04-25 08:23] LABS: Hematocrit 26.4 % (37.0-47.0); Hemoglobin 8.5 g/dL (12.0-16.0); Mean Corp Hgb Conc. 32.2 g/dL (33.0-37.0); Mean Corpuscular Hgb 28.8 pg (27.0-31.0); Mean Corpuscular Volume 89.5 fL (81.0-99.0); Mean Platelet Volume 9.9 fL (7.4-10.4); Platelet Count 186 10^3/uL (130-400); Red Blood Cell Count 2.95 10^6/uL (4.20-5.40); Red Cell Dist. Width 15.2 % (11.5-14.5); White Blood Cell Count 5.3 10^3/uL (4.8-10.8)
[2024-04-25] MEDS: FEOSOL 325 MG PO (10:00)
--- NOTE | 2024-04-25 10:32 | CM ---
Addendum entered by Julia Montelongo 04/25/24 14:36:
Covid negative
Original Note:
Patient for discharge to [facility] today. IMM signed by patient & placed in chart
Spoke with [facility] & bed available. Daughter Oksana notified.
Would like a call back time of transport. Transport forms filled out.
Nofied physician to order Covid test prior to discharge.
PLAN: Discharge to [facility] today via ambulance
Report - [phone]
Fax - [phone]
[2024-04-25 11:01] VITALS: BP 137/52
[2024-04-25 11:43] LABS: COVID-19 Antigen Negative (Negative)
[2024-04-25] MEDS: FERRLECIT 110 MG IV (13:11)
--- NOTE | 2024-04-25 14:23 | W.DS.TRANS ---
DC Summary - Industrial Hygenist
-
Discharge Instructions:
Discharge Diagnosis/Procedures Impression:
Mechanical fall with traumatic back muscular
hematoma.
Acute anemia secondary to blood loss into
hematoma and anticoagulation with Xarelto
Conditions prior to admission:
Permanent atrial fibrillation/atrial flutter,
atrial tachycardia, status post atrioventricular
ablation/block, status post pacemaker insertion
2015.
Mild MR
Anticoagulation with Xarelto.
Essential hypertension.
Chronic ambulatory dysfunction walker dependent.
Osteoarthritis status post total knee
arthroplasty 12/19
Diet Regular
Instructions:
Stand-Alone Forms:
Changes to Home Medications: Yes
Discharge Medications:
DC Medications w/original date entered in [email or web address]
acetaminophen 325 mg tablet (Tylenol) 650 mg PO QIDPRN PRN mild leg pains 04/22/24
calcium carbonate 500 mg PO DAILY Supplement 04/22/24
cyanocobalamin (vitamin B-12) 1,000 mcg tablet 1,000 mcg PO QPM Supplement 04/22/24
rivaroxaban 20 mg tablet (Xarelto) 20 mg PO QPM Blood Clot Prevention/Tx 04/22/24
ferrous sulfate 325 mg (65 mg iron) tablet (FeroSul) 325 mg PO DAILY #30 tabs 04/25/24
Home Medication Changes
Hold Xarelto and restart on 04/29/24
Pending Results: No
== END 2024-04-25 14:39 | DRG 605 ==
LOC: 4 WEST ACU 14:14
PROVIDERS: Internal Medicine; Physician Assistant Medical; ADMITTING PHYSICIAN Internal Medicine; EMERGENCY PHYSICIAN Student in an Organized Health Care Education/Training Program; FAMILY PHYSICIAN Internal Medicine Geriatric Medicine
PROC: 30283B1 Transfusion of Nonautologous 4-Factor Prothrombin Complex Concentrate into Vein, Percutaneous Approach (ICD-10-PCS; 2024-04-22)
DX: S30.0XXA Contusion of lower back and pelvis, initial encounter (principal); D62 Acute posthemorrhagic anemia; I48.21 Permanent atrial fibrillation; I47.19 Other supraventricular tachycardia; D68.32 Hemorrhagic disorder due to extrinsic circulating anticoagulants; S20.222A Contusion of left back wall of thorax, initial encounter; M54.50 Low back pain, unspecified; S51.811A Laceration without foreign body of right forearm, initial encounter; M19.90 Unspecified osteoarthritis, unspecified site; R26.2 Difficulty in walking, not elsewhere classified; R35.0 Frequency of micturition; I10 Essential (primary) hypertension; E78.00 Pure hypercholesterolemia, unspecified; K21.9 Gastro-esophageal reflux disease without esophagitis; W06.XXXA Fall from bed, initial encounter; Y93.89 Activity, other specified; Y92.003 Bedroom of unspecified non-institutional (private) residence as the place of occurrence of the external cause; Z66 Do not resuscitate; Z96.642 Presence of left artificial hip joint; Z96.651 Presence of right artificial knee joint; Z11.52 Encounter for screening for COVID-19; Z79.01 Long term (current) use of anticoagulants; Z95.0 Presence of cardiac pacemaker; Z88.0 Allergy status to penicillin; Z88.8 Allergy status to other drugs, medicaments and biological substances
CPT/HCPCS: 70450; 71260; 74177; 80048; 85014; 85018; 85025; 85027; 86850; 86900; 86901; 87811; 93005; 96374; 97163; 97167; 99291; J2916; J7168; Q9967

== ENCOUNTER → 2024-07-12 10:28 | Emergency (ER) | payer MEDICARE, SELFPAY ==
[2024-07-12 10:29] VITALS: BP 161/78
--- NOTE | 2024-07-12 10:29 | ED.GENMED ---
ED Provider Triage
<Radha Briceno PA-C - Last Filed: 07/12/24 10:34>
-
Patient seen by provider in Triage?: Seen in Triage
Attestation: A medical screening examination has been initiated by a qualified medical provider. Based on the assessment performed at this time, it has been determined that an emergent medical condition may exist and the patient has been informed
that further medical evaluation and possible additional diagnostic testing may be needed.
HPI: 84yoF here after a fall <1 hour ago. Fell while getting into the commode. No reported head injuries or LOC. On Xarelto for afib. Daughter denies any obvious injuries but wanted to get her evaluated. Patient with no complaints currently.
GENERAL: Alert , in no apparent distress
EYE: No visual abnormalities.
NECK: Trachea midline
ENT: No visible abnormalities.
LUNGS: No acute respiratory distress
NEUROLOGICAL: Alert and oriented
SKIN: Skin intact. No visible changes.
MUSCULOSKELETAL: Moving extremities normally
PSYCH: Normal and appropriate interaction.
This is a medical evaluation conducted in person to initiate diagnostic evaluation and provide initial therapeutics. Please see further documentation by the treating clinician.
History of Present Illness
<Radha Briceno PA-C - Last Filed: 07/12/24 10:34>
General
Chief Complaint: Fall
Time Seen by Provider: 07/12/24 11:36
<Robin Saldana PA-C - Last Filed: 07/12/24 13:42>
General
Source: patient
History of Present Illness
History of Present Illness:
84-year-old female on Xarelto fell off toilet today while trying to sit on the toilet. She fell to the side. Her daughter was right there does not think she hit her head. Patient also has right hip pain but this seems to be ongoing as well. No
chest pain or shortness of breath. There is no loss of consciousness or preceding dizziness. No other complaints.
Past History
<Radha Briceno PA-C - Last Filed: 07/12/24 10:34>
Past History
ED Past Medical History: Arrthythmia (Atrial tachycardia, atrial fibrillation), GERD, HTN and Hypercholesterolemia
ED Past Surgical History: Cardiac (Cardiac ablations/cardioversions), Gynecological (D&C) and Other (Renal artery stenting)
Social History
Tobacco: Non-smoker
Alcohol: None
Drug: None
Personal:
Living: with family
Employment: Retired
Family History
Family History: Negative Early CAD
Phy Exam
<Robin Saldana PA-C - Last Filed: 07/12/24 13:42>
Physical Exam
Physical Exam:
General: Frail-appearing female no acute respiratory distress
HEENT: Normocephalic no obvious scalp abrasion or hematoma
Heart: Regular rate and rhythm
Lungs: Clear no wheeze
Musculoskeletal exam: Cervical spine nontender. There is some pain with external rotation of the right hip.
Neurologic exam: Alert good muscle tone no facial asymmetry
Course
<Radha Briceno PA-C - Last Filed: 07/12/24 10:34>
Orders/Labs/Results
Orders:
Orders
07/12/24 12:40
CT Head W/o Iv Contrast Urgent
Comment:
Reason For Exam: fall
CR Hip - RT w/wo Pel 2-3 Vw* Urgent
Comment:
Reason For Exam: fall
Include a pelvis x-ray?: Yes
Vital Signs
Initial and Last Documented VS:
Initial Vital Signs
Temp Pulse Resp BP Pulse Ox
98.8 F 91 22 161/78 96
07/12/24 10:29 07/12/24 10:29 07/12/24 10:29 07/12/24 10:29 07/12/24 10:29
Last Documented Vital Signs
Temp Pulse Resp BP Pulse Ox
98.8 F 91 22 161/78 96
07/12/24 10:29 07/12/24 10:29 07/12/24 10:29 07/12/24 10:29 07/12/24 10:29
<Robin Saldana PA-C - Last Filed: 07/12/24 13:42>
Orders/Labs/Results
Orders:
Orders
07/12/24 12:40
CT Head W/o Iv Contrast Urgent
Comment:
Reason For Exam: fall
CR Hip - RT w/wo Pel 2-3 Vw* Urgent
Comment:
Reason For Exam: fall
Include a pelvis x-ray?: Yes
Vital Signs
Initial and Last Documented VS:
Initial Vital Signs
Temp Pulse Resp BP Pulse Ox
98.8 F 91 22 161/78 96
07/12/24 10:29 07/12/24 10:29 07/12/24 10:29 07/12/24 10:29 07/12/24 10:29
Last Documented Vital Signs
Temp Pulse Resp BP Pulse Ox
98.8 F 91 22 161/78 96
07/12/24 10:29 07/12/24 10:29 07/12/24 10:29 07/12/24 10:29 07/12/24 10:29
<Robin Saldana PA-C - Last Filed: 07/12/24 13:42>
MDM/Problems Addressed
Differential Diagnosis Includes:
Fall on Xarelto. Concern for possible head injury. CT of the head ordered. X-ray of the right hip ordered as well.
<Robin Saldana PA-C - Last Filed: 07/12/24 13:42>
*Critical Care Note
Total Time (30-74mins, 75-104mins- exclusive of procedures): Not Applicable
<Robin Saldana PA-C - Last Filed: 07/12/24 13:42>
Update Note
Update Note:
CT of head and x-ray right hip negative for acute traumatic injury. There is degenerative changes in the right hip. Reassured patient and family. Stable for discharge back home
ED Attending Note
<Radha Briceno PA-C - Last Filed: 07/12/24 10:34>
-
Portions of this chart may have been created with voice recognition software.� Occasional wrong word or��sound alike� substitutions may have occurred due to the inherent limitations of voice recognition software.
Discharge Plan
Departure
Patient Disposition: Home (Routine Discharge)
Date of Disposition: 07/12/24
Time of Disposition: 13:40
Patient with high blood pressure during this ER visit?: No
Discharge Problem:
Fall
Instructions: Preventing falls in adults
Prescriptions:
No Action
acetaminophen [Tylenol] 325 mg Tablet
650 mg PO QIDPRN PRN (Reason: mild leg pains)
cyanocobalamin (vitamin B-12) 1,000 mcg Tablet
1,000 mcg PO QPM
calcium carbonate 500 mg calcium (1,250 mg) Tablet
500 mg PO DAILY
Xarelto 20 mg Tablet
20 mg PO QPM
ferrous sulfate [FeroSul] 325 mg (65 mg iron) Tablet
325 mg PO DAILY Qty: 30 0RF
Referrals:
Steven King MD [Family Provider] -
Activity Restrictions/Additional Instructions:
As discussed there is no traumatic injury to the brain or hip. You may use Tylenol if needed for pain. Return here for worsening symptoms otherwise follow-up with your doctor
Interventions
Interventions:
*Risk Screen - Suicide Last Done: 07/12/24 10:30
*General Assessment Last Done: 07/12/24 10:30
*Neglect/Abuse Screening Last Done: 07/12/24 10:30
ED- Fall Risk Assessment Last Done: 07/12/24 12:48
*ED COVID-19 Vaccine History Last Done: 07/12/24 12:48
Discharge Date and Time
Print Language: JAPANESE
== END | disposition home or self-care (01) ==
LOC: EMR 10:28
PROVIDERS: EMERGENCY PHYSICIAN Emergency Medicine; FAMILY PHYSICIAN Internal Medicine Geriatric Medicine
DX: Z04.3 Encounter for examination and observation following other accident (principal); M25.551 Pain in right hip; E78.00 Pure hypercholesterolemia, unspecified; I10 Essential (primary) hypertension; I48.91 Unspecified atrial fibrillation; K21.9 Gastro-esophageal reflux disease without esophagitis; Z79.01 Long term (current) use of anticoagulants; W18.11XA Fall from or off toilet without subsequent striking against object, initial encounter
CPT/HCPCS: 99284; 70450; 73502

== ENCOUNTER 2024-10-05 12:47 | Day surgery (SDC) | payer MEDICARE, SELFPAY ==
[2024-10-05] VITALS (7 sets, daily range): BP systolic 120–163; BP diastolic 50–74; BMI 24.5
[2024-10-05 14:00] LABS: Hemoglobin 12.4 g/dL (12.0-16.0); Mean Corp Hgb Conc. 31.8 g/dL (33.0-37.0); Mean Corpuscular Hgb 29.7 pg (27.0-31.0); Mean Corpuscular Volume 93.5 fL (81.0-99.0); Mean Platelet Volume 9.7 fL (7.4-10.4); Platelet Count 174 10^3/uL (130-400); Red Blood Cell Count 4.17 10^6/uL (4.20-5.40); White Blood Cell Count 5.2 10^3/uL (4.8-10.8)
[2024-10-05 14:16] LABS: ALT (SGPT) 14 U/L (0-35); AST (SGOT) 26 U/L (14-36); Albumin 4.5 g/dl (3.5-5.0); Alkaline Phosphatase 66 U/L (38-126); Blood Urea Nitrogen 22 mg/dl (7-17); Calcium 9.5 mg/dl (8.4-10.2); Carbon Dioxide 29 mmol/L (22-30); Chloride 103 mmol/L (98-107); Estimated Creatinine Clearance 62 ml/min; Glucose 93 mg/dl (70-99); Potassium 4.3 mmol/L (3.5-5.1); Sodium 139 mmol/L (135-145); Total Protein 6.9 g/dl (6.3-8.2); eGFR > 60.00
--- NOTE | 2024-10-05 16:03 | ITS.CL.PACE ---
Die Developer - Pacemaker Implant
Pacemaker Implant
Procedure Report:
PACEMAKER GENERATOR CHANGE
Date of Procedure: October 05, 2024
Primary Care Provider: Dr Steven King
Primary automation tech: Dr Ruben Fernández
PROCEDURES:
1. Removal of single chamber PPM generator at [facility]
2. Implant of new single chamber PPM generator
INDICATION FOR PROCEDURE:
1. PPM generator at [facility]
2. Non-reversible symptomatic bradycardia due to third degree atrioventricular block in the setting of permanent atrial fibrillation and prior AV node ablation.
The patient was prepped and draped in sterile fashion. Lidocaine with epi was used for local anesthesia. An incision was made along the previous incision and the device and leads were carefully dissected from the pocket. Hemostasis was obtained
with electrocautery. The leads were from the device header and tested using an external analyzer. The pocket was liberally irrigated with antibiotic solution. Once testing (see below) showed adequate and stable function, the leads were
connected to the generator header and the leads and generator were placed within the pocket. The pocket was closed in the typical fashion.
EXPLANTED PPM GENERATOR:
Medtronic [id number]
IMPLANTED PPM GENERATOR:
Medtronic [id number], SN [id number]
RETAINED LEADS:
RV Lead: Medtronic; Model# [id number]; SN: [id number]
DEVICE TESTING:
Sensing: RV na
Capture: RV 0.5 V @ 0.4ms
Ohms: RV 400
FINAL PROGRAMMING
Julio Pacing: VVIR 75 ppm
COMPLICATIONS:
None
CONCLUSIONS:
1. Successful explant of single chamber permanent pacemaker
2. Successful implant of single chamber permanent pacemaker
3. Resume Xarelto tonight
RECOMMENDATIONS:
1. In-Office wound check in 7-10 days.
Copy to:
Dr Steven King
Dr Ruben Fernández
== END 2024-10-05 17:07 | disposition home or self-care (01) ==
LOC: CATH 12:47
PROVIDERS: ATTENDING PHYSICIAN Internal Medicine Cardiovascular Disease; FAMILY PHYSICIAN Internal Medicine Geriatric Medicine; OTHER PHYSICIAN Internal Medicine Cardiovascular Disease
DX: Z45.010 Encounter for checking and testing of cardiac pacemaker pulse generator [battery] (principal); I44.2 Atrioventricular block, complete; Z88.8 Allergy status to other drugs, medicaments and biological substances; Z88.0 Allergy status to penicillin; I48.21 Permanent atrial fibrillation; R00.1 Bradycardia, unspecified; Z79.01 Long term (current) use of anticoagulants
CPT/HCPCS: 33227; 80053; 85027; C1786

== ENCOUNTER → 2024-12-20 16:55 | Outpatient (REF) | payer MEDICARE, SELFPAY ==
[2024-12-20 17:16] LABS: Urine Albumin Negative (Neg - Trace); Urine Bilirubin Negative (Negative); Urine Character Clear (Clear); Urine Color Yellow; Urine Glucose Negative (Negative); Urine Ketone Negative (Negative); Urine Leukocyte 1+ (Negative); Urine Nitrite Negative (Negative); Urine Occult Blood 1+ (Negative); Urine Specific Gravity 1.015 (<1.030); Urine Urobilinogen Negative (Neg - 1+)
[2024-12-20 17:23] LABS: Urine Calcium Oxalate Crystals Seen; Urine Squamous Cell >30 /LPF (Few)
[2024-12-20 17:24] LABS: Urine Bacteria Moderate (Negative)
[2024-12-20 17:25] LABS: Urine Bacteria Moderate (Negative)
== END ==
LOC: OLABN 16:55
PROVIDERS: ATTENDING PHYSICIAN Internal Medicine Geriatric Medicine
DX: R82.90 Unspecified abnormal findings in urine (principal)
CPT/HCPCS: 81003; 81015; 87086

== ENCOUNTER → 2024-12-21 09:50 | Outpatient (REF) | payer MEDICARE, SELFPAY ==
[2024-12-21 10:32] LABS: Hematocrit 35.8 % (37.0-47.0); Hemoglobin 11.3 g/dL (12.0-16.0); Mean Corp Hgb Conc. 31.6 g/dL (33.0-37.0); Mean Corpuscular Hgb 28.3 pg (27.0-31.0); Mean Corpuscular Volume 89.7 fL (81.0-99.0); Mean Platelet Volume 9.9 fL (7.4-10.4); Platelet Count 190 10^3/uL (130-400); Red Blood Cell Count 3.99 10^6/uL (4.20-5.40); Red Cell Dist. Width 14.4 % (11.5-14.5); White Blood Cell Count 5.8 10^3/uL (4.8-10.8)
[2024-12-21 10:48] LABS: ALT (SGPT) 12 U/L (0-35); AST (SGOT) 21 U/L (14-36); Albumin 3.8 g/dl (3.5-5.0); Alkaline Phosphatase 66 U/L (38-126); Blood Urea Nitrogen 21 mg/dl (7-17); Calcium 9.1 mg/dl (8.4-10.2); Carbon Dioxide 31 mmol/L (22-30); Chloride 106 mmol/L (98-107); Glucose 80 mg/dl (70-99); HDL Cholesterol 62 mg/dl; LDL Cholesterol, Calculated 110 mg/dl; Potassium 4.4 mmol/L (3.5-5.1); Sodium 142 mmol/L (135-145); Total Bilirubin 0.7 mg/dl (0.2-1.3); Total Cholesterol 183 mg/dl (50-199); Total Protein 5.7 g/dl (6.3-8.2); Triglyceride 58 mg/dl (10-149); Very Low Density Lipoprotein 11 mg/dl (0-30); eGFR > 60.00
[2024-12-21 10:58] LABS: Vitamin D, 25-OH*** 37.7 ng/mL (30-80)
== END ==
LOC: OLABN 09:50
PROVIDERS: ATTENDING PHYSICIAN Internal Medicine Geriatric Medicine
DX: E55.9 Vitamin D deficiency, unspecified (principal); E78.5 Hyperlipidemia, unspecified
CPT/HCPCS: 36415; 80053; 80061; 82306; 85027

== ENCOUNTER → 2025-04-03 10:06 | Outpatient (REF) | payer MEDICARE, SELFPAY ==
[2025-04-03 10:28] LABS: Hematocrit 39.3 % (37.0-47.0); Hemoglobin 12.8 g/dL (12.0-16.0); Mean Corp Hgb Conc. 32.6 g/dL (33.0-37.0); Mean Corpuscular Volume 89.3 fL (81.0-99.0); Platelet Count 192 10^3/uL (130-400); Red Cell Dist. Width 15.1 % (11.5-14.5)
[2025-04-03 10:45] LABS: Albumin 3.8 g/dl (3.5-5.0); Blood Urea Nitrogen 20 mg/dl (7-17); Calcium 9.3 mg/dl (8.4-10.2); Carbon Dioxide 28 mmol/L (22-30); Chloride 107 mmol/L (98-107); Glucose 106 mg/dl (70-99); Potassium 3.9 mmol/L (3.5-5.1); Sodium 138 mmol/L (135-145); eGFR > 60.00
[2025-04-03 10:49] LABS: D-Dimer < 0.27 ug/mlFEU (0.00-0.50)
== END ==
LOC: OLABN 10:06
PROVIDERS: ATTENDING PHYSICIAN Internal Medicine Geriatric Medicine
DX: E55.9 Vitamin D deficiency, unspecified (principal); E78.9 Disorder of lipoprotein metabolism, unspecified
CPT/HCPCS: 36415; 80069; 83880; 85027; 85379

== ENCOUNTER → 2025-06-12 11:51 | Outpatient (REF) | payer MEDICARE, SELFPAY ==
[2025-06-12 13:14] LABS: ALT (SGPT) 10 U/L (0-35); AST (SGOT) 17 U/L (14-36); Albumin 3.7 g/dl (3.5-5.0); Alkaline Phosphatase 66 U/L (38-126); Blood Urea Nitrogen 20 mg/dl (7-17); Calcium 9.0 mg/dl (8.4-10.2); Carbon Dioxide 29 mmol/L (22-30); Chloride 105 mmol/L (98-107); Glucose 103 mg/dl (70-99); HDL Cholesterol 60 mg/dl; LDL Cholesterol, Calculated 133 mg/dl; Potassium 3.8 mmol/L (3.5-5.1); Sodium 137 mmol/L (135-145); Total Protein 6.1 g/dl (6.3-8.2); Very Low Density Lipoprotein 19 mg/dl (0-30); eGFR > 60.00
[2025-06-12 13:40] LABS: TSH 2.25 uIU/ml (0.47-4.68)
== END ==
LOC: OLABN 11:51
PROVIDERS: ATTENDING PHYSICIAN Internal Medicine Geriatric Medicine
DX: E03.9 Hypothyroidism, unspecified (principal)
CPT/HCPCS: 80053; 80061; 84439; 84443